=== PATIENT | female | born 1945 | race Caucasian/White ===

== ENCOUNTER → 2021-09-15 | Outpatient (CLI) | payer MEDICARE, OTHER ==
[~2021-09-15] MED LIST: CATHETER FLUSH 10 ML SYR IV PRN; HOLD METFORMIN - RECEIVED CONTRAST 20 ML VIAL IV SCH; IOHEXOL 350 MG/ML 100 ML (OMNIPAQUE 350) VIAL IV ONE; NS 100 ML (IVPB) BAG IV ONE
[2021-09-15 11:47] LABS: BASOPHILS % (AUTO) 1 % (0-10); EOSINOPHILS # (AUTO) 0.2 10^3/uL (0.0-0.3); EOSINOPHILS % (AUTO) 5 % (0-10); HEMATOCRIT 42 % (35-52); HEMOGLOBIN 14.7 g/dL (11.5-16.0); LYMPHOCYTES # (AUTO) 1.2 10^3/uL (1.0-4.0); LYMPHOCYTES % (AUTO) 27 % (12-44); MEAN CORPUSCULAR HEMOGLOBIN 32 pg (25-34); MEAN CORPUSCULAR HGB CONC 35 g/dL (32-36); MEAN CORPUSCULAR VOLUME 89 fL (80-99); MEAN PLATELET VOLUME 9.2 fL (9.0-12.2); MONOCYTES # (AUTO) 0.3 10^3/uL (0.0-1.0); MONOCYTES % (AUTO) 7 % (0-12); NEUTROPHILS # (AUTO) 2.7 10^3/uL (1.8-7.8); NEUTROPHILS % (AUTO) 60 % (42-75); PLATELET COUNT 275 10^3/uL (130-400); WHITE BLOOD COUNT 4.5 10^3/uL (4.3-11.0)
[2021-09-15 12:03] LABS: CREATININE SERUM 0.89 MG/DL (0.60-1.30); POTASSIUM 3.5 MMOL/L (3.6-5.0)
[2021-09-15 12:04] LABS: ALBUMIN 3.8 GM/DL (3.2-4.5); BILIRUBIN,TOTAL 0.7 MG/DL (0.1-1.0); TOTAL PROTEIN 6.8 GM/DL (6.4-8.2)
[2021-09-15 12:21] LABS: BAND NEUTROPHILS 7 %; LYMPHOCYTES % (MANUAL) 22 %; MONOCYTES % (MANUAL) 10 %; NEUTROPHILS % (MANUAL) 48 %
[2021-09-15 12:22] LABS: ATYPICAL LYMPHOCYTES 10 %; BASOPHILS % (MANUAL) 0 %; EOSINOPHILS % (MANUAL) 3 %; ERYTHROCYTE SEDIMENTATION RATE 28 MM/HR (0-30); PLATELET ESTIMATE NORMAL; RBC MORPH NORMAL
--- NOTE | 2021-09-15 13:02 | Diagnostic Imaging Report ---
PROCEDURE: CT abdomen and pelvis with contrast. TECHNIQUE: Multiple contiguous axial images were obtained through the abdomen and pelvis after administration of intravenous contrast. Auto Exposure Controls were utilized during the CT exam to meet ALARA standards for radiation dose reduction. All CT scans use one or more of the following dose optimizing techniques: Automated exposure control, MA and/or KvP adjustment based on patient size and exam type or iterative reconstruction. INDICATION: Upper abdominal pain with postprandial nausea. FINDINGS: There is mild low density along the anterior aspect of the liver adjacent to the falciform ligament, which may be due to fatty deposition. No focal hepatic lesion is identified. Gallbladder is unremarkable. There is no evidence of biliary ductal dilatation. No pancreatic, left adrenal gland, or splenic abnormality is identified. 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 There is an approximately 2 cm nodule in the right adrenal gland. This has somewhat heterogeneous low density. There is moderate aortoiliac atherosclerotic calcification with dense calcification at the origins of main renal arteries. There is no evidence of focal inflammation or organized fluid collection within the abdomen or pelvis. Unopacified bladder is decompressed which limits evaluation. There is moderate lumbar spondylosis. IMPRESSION: No definite acute abnormality is identified; however, there is an approximately 2 cm right adrenal gland nodule. While this may represent adenoma, correlation with older studies would be useful. Otherwise, consideration could be given to short-term follow-up study in six months for volumetric reassessment. Dictated by: Dictated on workstation # [id number]
== END ==
LOC: LAB FS 11:25
PROVIDERS: ATTEND Internal Medicine
DX: E27.8 Other specified disorders of adrenal gland (principal); E11.65 Type 2 diabetes mellitus with hyperglycemia; I10 Essential (primary) hypertension
CPT/HCPCS: 36415; 74177; 80053; 82150; 83690; 85007; 85027; 85652; Q9967

== ENCOUNTER → 2021-09-23 | Outpatient (CLI) | payer MEDICARE, OTHER ==
--- NOTE | 2021-09-23 13:47 | Diagnostic Imaging Report ---
INDICATION: Abdominal pain for 2 weeks. PROCEDURE: Ultrasound abdomen complete. TECHNIQUE: Multiple real-time grayscale images were obtained of the abdomen in various projections. The liver is normal in size at 15 cm. Portal vein is patent and shows normal direction of flow. Gallbladder is without stones or sludge. No wall thickening or biliary duct dilatation is seen. Visualized pancreas unremarkable. Spleen is normal in size at 8.4 cm. Aorta is nonaneurysmal. IVC is patent. Right and left kidneys are without calculi or hydronephrosis. There is no ascites. IMPRESSION: Unremarkable abdominal ultrasound. Dictated by: Dictated on workstation # [id number]
== END ==
LOC: RAD 08:04
PROVIDERS: ATTEND Internal Medicine
DX: R10.9 Unspecified abdominal pain (principal)
CPT/HCPCS: 76700